=== PATIENT | male | born 1970 | race Caucasian/White ===

== ENCOUNTER 2017-02-10 22:20 | Emergency (ER) | payer OTHER | END 2017-02-11 02:24 | disposition home or self-care (01) | LOC: ER1 22:20 | DX: S63.501A Unspecified sprain of right wrist, initial encounter (principal); Z87.891 Personal history of nicotine dependence; W01.0XXA Fall on same level from slipping, tripping and stumbling without subsequent striking against object, initial encounter; Y92.009 Unspecified place in unspecified non-institutional (private) residence as the place of occurrence of the external cause | CPT/HCPCS: 29125; 73110; 99283 ==

== ENCOUNTER 2017-02-26 19:10 | Emergency (ER) | payer OTHER ==
[2017-02-26 21:00] LABS: HEMOGLOBIN 14.9 gm/dl (14.0-17.5); RED BLOOD COUNT 4.72 M/UL (4.20-5.50); WHITE BLOOD COUNT 10.6 K/UL (4.5-11.0)
[2017-02-26 21:18] LABS: BUN/CREATININE RATIO 14 (0-10)
== END 2017-02-27 02:48 | disposition home or self-care (01) ==
LOC: ER1 19:10
PROVIDERS: Emergency Medicine
DX: S39.012A Strain of muscle, fascia and tendon of lower back, initial encounter (principal); F17.200 Nicotine dependence, unspecified, uncomplicated; W17.89XA Other fall from one level to another, initial encounter; Y93.89 Activity, other specified; Y99.8 Other external cause status
CPT/HCPCS: 36415; 71020; 72131; 80053; 83690; 85025; 96374; 96375; 99284; J2270; J2405; J7050; Q9962

== ENCOUNTER 2017-03-26 19:21 | Emergency (ER) | payer OTHER | END 2017-03-26 20:00 | disposition home or self-care (01) | LOC: ER1 19:21 | DX: L23.7 Allergic contact dermatitis due to plants, except food (principal); F17.210 Nicotine dependence, cigarettes, uncomplicated | CPT/HCPCS: 99282 ==

== ENCOUNTER 2020-11-19 10:33 | Emergency (ER) | payer OTHER ==
[~2020-11-19 10:33] MED LIST: ANUSOL HC SUPP1 SUPP PR; ASPIRIN CHEWABL81 MG PO; ASPIRIN EC81 MG PO; BENADRYL 25MG C25 MG PO; IMDUR ER TAB 3030 MG PO; NORCO 5-325 TA1 EACH PO; PREDNISONE 50 M50 MG PO; PROCTOCREAM-HC30 G1 TP; PROTONIX40 MG PO; STOOL SOFTENER100 MG PO; VENTOLIN HFA 66.7 GM INH; ZANTAC150 MG PO
[2020-11-19 13:18] LABS: HEMOGLOBIN 16.8 gm/dl (14.0-17.5); RED BLOOD COUNT 5.3 M/UL (4.20-5.50); WHITE BLOOD COUNT 15.9 K/UL (4.5-11.0)
[2020-11-19 13:37] LABS: BUN/CREATININE RATIO 13 (0-10)
[2020-11-19] MEDS ORDERED: OMNICEF 300 MG300 MG PO (16:49)
[2020-11-19] MEDS ORDERED: ZOFRAN4 MG PO (16:49)
[2020-11-19] MEDS ORDERED: TORADOL 10 MG T10 MG PO (16:49)
== END 2020-11-19 17:59 | disposition home or self-care (01) ==
LOC: ER1 10:33
PROVIDERS: Physician Assistant Medical
DX: N13.2 Hydronephrosis with renal and ureteral calculous obstruction (principal); I10 Essential (primary) hypertension; F17.210 Nicotine dependence, cigarettes, uncomplicated; Z88.0 Allergy status to penicillin; Z87.442 Personal history of urinary calculi
CPT/HCPCS: 80053; 81001; 83605; 85025; 85652; 86140; 96365; 96375; 99284; J0696; J1885; J2405; J7030; Q9967

== ENCOUNTER 2021-08-02 17:35 | Emergency (ER) | payer OTHER ==
[~2021-08-02 17:35] MED LIST changes: +OMNICEF 300 MG300 MG PO; +TORADOL 10 MG T10 MG PO; +ZOFRAN4 MG PO
[2021-08-02] MEDS ORDERED: PREDNISONE50 MG PO (20:05)
[2021-08-02] MEDS ORDERED: TORADOL 10 MG T10 MG PO (20:05)
[2021-08-02] MEDS ORDERED: NORFLEX 100 MG100 MG PO (20:05)
== END 2021-08-02 20:15 | disposition home or self-care (01) ==
LOC: ER1 17:35
DX: M54.41 Lumbago with sciatica, right side (principal); F17.210 Nicotine dependence, cigarettes, uncomplicated; Z88.0 Allergy status to penicillin; Z88.8 Allergy status to other drugs, medicaments and biological substances
CPT/HCPCS: 72100; 96372; 99283; J1100; J1885

== ENCOUNTER 2021-08-12 21:27 | Emergency (ER) | payer OTHER ==
[~2021-08-12 21:27] MED LIST changes: +NORFLEX 100 MG100 MG PO; +PREDNISONE50 MG PO
[2021-08-12 23:40] LABS: HEMOGLOBIN 16.8 gm/dl (14.0-17.5); RED BLOOD COUNT 5.25 M/UL (4.20-5.50); WHITE BLOOD COUNT 17.2 K/UL (4.5-11.0)
[2021-08-12 23:44] LABS: BUN/CREATININE RATIO 21 (0-10)
[2021-08-13] MEDS ORDERED: CYCLOBENZAPRINE10 MG PO (01:42)
== END 2021-08-13 02:06 | disposition home or self-care (01) ==
LOC: ER1 21:27
PROVIDERS: Family Medicine
DX: M51.36 Other intervertebral disc degeneration, lumbar region (principal); Z88.0 Allergy status to penicillin; F17.200 Nicotine dependence, unspecified, uncomplicated; R21 Rash and other nonspecific skin eruption
CPT/HCPCS: 73552; 73590; 80053; 83605; 85025; 86140; 99284

== ENCOUNTER → 2021-10-15 | Outpatient (CLI) | payer OTHER ==
[~2021-10-15] MED LIST changes: +CYCLOBENZAPRINE10 MG PO
== END ==
LOC: KOH-I 08:50
DX: M54.59 Other low back pain (principal); M48.07 Spinal stenosis, lumbosacral region
CPT/HCPCS: 72148